=== PATIENT | male | born 1990 | race Caucasian/White ===

== ENCOUNTER 2020-10-09 21:14 | Emergency (ER) | payer SELFPAY ==
[2020-10-09] MEDS ORDERED: Ketorolac Tromethamine 30 MG/ML VIAL ONE (23:12)
== END 2020-10-09 23:30 | disposition home or self-care (01) ==
LOC: ERS 21:14
DX: S46.912A Strain of unspecified muscle, fascia and tendon at shoulder and upper arm level, left arm, initial encounter (principal); V43.52XA Car driver injured in collision with other type car in traffic accident, initial encounter
CPT/HCPCS: 96372; J1885

== ENCOUNTER 2021-01-06 22:32 | Emergency (ER) | payer SELFPAY | END 2021-01-07 01:00 | disposition home or self-care (01) | LOC: ERS 22:32 | DX: L03.114 Cellulitis of left upper limb (principal); J45.909 Unspecified asthma, uncomplicated; F17.210 Nicotine dependence, cigarettes, uncomplicated; Z79.899 Other long term (current) drug therapy | CPT/HCPCS: 99283 ==

== ENCOUNTER 2021-05-23 21:19 | Emergency (ER) | payer SELFPAY ==
[2021-05-23] MEDS ORDERED: Ondansetron ODT 4 MG TAB ONE (21:24)
== END 2021-05-23 23:48 | disposition left against medical advice (07) ==
LOC: ERS 21:19
DX: Z53.21 Procedure and treatment not carried out due to patient leaving prior to being seen by health care provider (principal)
CPT/HCPCS: Q0162

== ENCOUNTER 2021-09-18 21:24 | Emergency (ER) | payer SELFPAY ==
[2021-09-18] MEDS ORDERED: Ondansetron PF 4 MG/2 ML Vial ONE (21:40)
[2021-09-18] MEDS ORDERED: diphenhydrAMINE 50 MG/ML VIAL ONE (21:40)
[2021-09-18] MEDS ORDERED: Ketorolac Tromethamine 30 MG/ML VIAL ONE (21:40)
== END 2021-09-18 23:12 | disposition home or self-care (01) ==
LOC: ERS 21:24
DX: G43.909 Migraine, unspecified, not intractable, without status migrainosus (principal); F17.210 Nicotine dependence, cigarettes, uncomplicated
CPT/HCPCS: 96374; 96375; J1200; J1885; J2405

== ENCOUNTER 2022-01-01 23:00 | Emergency (ER) | payer SELFPAY ==
[2022-01-02] MEDS ORDERED: Ketorolac Tromethamine 30 MG/ML VIAL ONE (00:52)
[2022-01-02] MEDS ORDERED: Metoclopramide HCl 10 MG/2 ML VIAL ONE (00:52)
[2022-01-02] MEDS ORDERED: diphenhydrAMINE 50 MG/ML VIAL ONE (00:52)
== END 2022-01-02 02:51 | disposition home or self-care (01) ==
LOC: ERS 23:00
DX: G43.909 Migraine, unspecified, not intractable, without status migrainosus (principal); F17.210 Nicotine dependence, cigarettes, uncomplicated
CPT/HCPCS: 96365; 96366; 96375; J1200; J1885; J2765

== ENCOUNTER 2022-11-03 06:16 | Emergency (ER) | payer SELFPAY ==
[2022-11-03] MEDS ORDERED: diphenhydrAMINE 50 MG/ML VIAL ONE (07:17)
[2022-11-03] MEDS ORDERED: Metoclopramide HCl 10 MG/2 ML VIAL ONE (07:17)
[2022-11-03] MEDS ORDERED: Ketorolac Tromethamine 30 MG/ML VIAL ONE (07:17)
== END 2022-11-03 08:43 | disposition home or self-care (01) ==
LOC: ERS 06:16
DX: G43.909 Migraine, unspecified, not intractable, without status migrainosus (principal); F17.210 Nicotine dependence, cigarettes, uncomplicated
CPT/HCPCS: 96374; 96375; J1200; J1885; J2765